=== PATIENT | male | born 1945 | race Caucasian/White ===

== ENCOUNTER 2017-03-02 22:45 | Observation (INO) | payer MEDICARE, OTHER ==
[~2017-03-02] VITALS: Ht 167.6 cm; Wt 75.1 kg
[~2017-03-02 22:45] MED LIST: ALBU8.5H2 INHALATION; ASPI-973 PO; BECL8.7A6 IH; BISO10TA PO; CHOL400T PO; DIGO125T73 PO; HYDR-4003 PO; INSLIS SUBQ; INSU100I13 SUBQ; LEVO750T39 PO; LIP40 PO; LISI-610 PO; NITR0.4T SL; POTA-62 PO; TIOT18CA3 IH; TORS20TA3 PO; WARF2TAB7 PO; WARF4TAB6 PO; ZLP5T PO
[2017-03-02 22:58] VITALS: PULSE 72; RESP 18; O2SAT 90
--- NOTE | 2017-03-02 23:05 | ED.REPORT ---
HPI-General Illness Date of Service Mar 02, 2017 ED Provider: Sae Gonzalez MD Patient is a 71 year old male with a history of congestive heart failure, COPD, coronary artery disease with prior SC, CABG 5x, aortic valve replacement, diabetes mellitus, hypertension, and atrial fibrillation on Warfarin who presents to the ED complaining of progressively worsening shortness of breath that began 1 week ago. Patient states that he had such difficulty breathing tonight that he just couldn't take it anymore. Patent reports associated cough and dyspnea on exertion. The patient reports intermittent sharp chest pain, which he states have been ongoing for some time. Patient admits to recently taking an additional Lasix but denies increased swelling in his legs. He denies a fever. The patient is currently in the process of moving and did not have access to his nebulizer. Nursing Notes Stated Complaint: CHF/SHORTNESS OF BREATH Chief Complaint: Respiratory Distress Nursing Notes Reviewed: Yes Allergies: Coded Allergies: morphine (Verified Adverse Reaction, Severe, Hallucinations, 03/03/17) Scheduled Aspirin (Aspirin) 81 Mg Tablet.dr 81 MG PO DAILY Atorvastatin (Lipitor) 40 Mg Tablet 40 MG PO HS Beclomethasone Dipropionate (Qvar) 8.7 Gm Aer.w.adap 2 PUFFS IH DAILY Bisoprolol Fumarate (Bisoprolol Fumarate) 10 Mg Tablet 10 MG PO BID Cholecalciferol (Vitamin D3) (Vitamin D3) 400 Unit Tablet 400 UNIT PO DAILY Digoxin (Digoxin) 125 Mcg Tablet 62.5 MCG PO DAILY Insulin Glargine (Lantus U100 Solostar Insulin Pen) 100 Unit/1 Ml Insuln.pen 16 UNIT SUBQ QAM Insulin Human Lispro (HumaLOG U100 Insulin Vial) 100 Unit/Ml Unit 0 SUBQ TID- INSULIN Check blood sugars before meals and at bedtime. Use correction factor only before meals. Blood Sugar Lispro Correction: <151, 0 units; 151-175, 1 unit; 176 -200, 2 units; 201-225, 3 units; 226-250, 4 units; 251-275, 5 units; 276-300, 6 units; 301-325, 7 units; 326-350, 8 units; 351-375, 9 units; 376-400, 10 units; >400, 12 units. Levofloxacin (Levofloxacin) 750 Mg Tablet 750 MG PO DAILY Lisinopril (Zestril) 10 Mg Tablet 10 MG PO BID Potassium Chloride ER (Potassium Chloride ER) 20 Meq Tablet.er 20 MEQ PO DAILY TAKE WITH FOOD Torsemide (Torsemide) 20 Mg Tablet 40 MG PO QAM Warfarin Sodium (Warfarin Sodium) 4 Mg Tablet 4 MG PO ,,, Warfarin Sodium (Warfarin Sodium) 2 Mg Tablet 2 MG PO ,,Sat Zolpidem (Ambien) 5 Mg Tab 5 MG PO HS Scheduled PRN Albuterol HFA (Proair HFA) 8.5 Gm Hfa.aer.ad 2 PUFFS INHALATION QID PRN PRN For Shortness of Breath Hydrocodone-Acetaminophen 5-325 mg (Hydrocodone-Acetaminophen 5-325 mg) 1 Each Tablet 1 EACH PO Q6 PRN PRN For Pain Nitroglycerin SL (Nitrostat) 0.4 Mg Tab.subl 0.4 MG SL Q5MIN PRN PRN For Chest Pain Tiotropium Thornton (Spiriva) 18 Mcg Cap.w.dev 18 MCG IH DAILY PRN PRN For Shortness of Breath General Time Seen by MD: 23:04 Chief Complaint Breathing problem Hx Obtained From: Patient Arrived By: Walk-in Sudden in Onset?: No Onset Occurred: 1 week ago Symptom Duration: Since onset Location: : Chest Quality: Painful, Sharp Severity: Current: No pain currently Severity: Maximum: Moderate Recent Healthcare: No recent doctor visit, No recent hospitalization Similar Sx Previous: Yes Past Medical History Past Medical History Notes: PCP: Dr. Jacques Health Insurance Sales Agent: Dr. Carvalho Past Medical History Coronary artery disease with multiple SC and 5-vessel bypass (2005) CHF, systolic atrial fibrillation on Warfarin Ischemic cardiomyopathy Lower intestine blood clot pneumonia right frontal meningioma Reports: COPD, Diabetes mellitus, Hyperlipidemia, Hypertension Past Surgical History Aortic valve replacement 5-vessel bypass Reports: Pacemaker insertion Family History Father age 50, SC Mother age 52, brain aneurysm Smoking History Former Smoker Social History Taking full care of traumatic brain injured son since age 18. Alcohol Use: "Social" Drug Use: Denies drug use Other Social History: Good social support, , Local resident Ambulatory Status Independent Review of Systems Full Review of Systems Constitutional: Denies: Fever Respiratory: Reports: Dyspnea on exertion, Non-productive cough, Shortness of breath Cardiovascular: Reports: Chest pain, Denies: Edema Musculoskeletal: Denies: Extremity swelling Physical Exam Vital Signs Vital Signs Date Time Temp Pulse Resp B/P Pulse Ox O2 Delivery O2 Flow Rate FiO2 03/03/17 00:15 73 20 111/64 92 Room Air 03/03/17 00:01 71 22 111/64 92 Room Air 03/02/17 23:35 72 24 136/67 92 Room Air 03/02/17 23:33 71 15 96 Room Air 03/02/17 22:58 36.9 72 18 90 Room Air Initial VS: Reviewed Skin: Warm, Dry, No cyanosis Neurologic: Alert, Oriented, Nonfocal Psychiatric: Mood/affect normal, Behavior normal, Normal thought content General/Constitutional: Awake, Alert, No acute distress Head / Eyes: Normocephalic, PERRL, EOMI ENT: Airway patent, Mucous membranes moist Neck: Supple, Full range of motion, No JVD Respiratory / Chest: Breath sounds = bilat, No rhonchi, No wheezing Rales / Rhonchi: Positive: Rales bilateral bases Cardiovascular: Heart rate NL, Regular rhythm, No gallop Heart Sounds / Murmur: Positive: Click present, Murmur present... (II/) Abdomen: Soft, Non-tender Upper Extremities Upper Extremity / MS: No swelling, No edema Lower Extremity / Pelvis / MS: No swelling, No edema Interpretation & Diagnostics Lab Results Interpretation Result Diagram: 03/03/17 0500 03/02/17 2330 Test 03/02/17 23:30 Prothrombin Time 31.7sec (8.1-12.5) Prothromb Time International Ratio 2.90ratio Sodium Level 138mEq/L (134-144) Potassium Level 4.0mEq/L (3.5-5.2) Chloride Level 102mEq/L (97-108) Carbon Dioxide Level 22mmol/L (18-29) Blood Urea Nitrogen 27mg/dL (8-27) Creatinine 1.13mg/dL (0.76-1.27) Estimat Glomerular Filtration Rate 68mL/min (>59) Glucose Level 171mg/dL (60-99) Lactic Acid Level 1.7mmol/L (0.4-2.0) Calcium Level 8.8mg/dL (8.5-10.1) Magnesium Level 2.0mg/dL (1.6-2.6) Total Bilirubin 1.0mg/dL (0.0-1.2) Aspartate Amino Transf (AST/SGOT) 23U/L (0-50) Alanine Aminotransferase (ALT/SGPT) 15U/L (0-44) Alkaline Phosphatase 75U/L (25-160) Pro-B-Type Natriuretic Peptide 3309pg/mL (0-376) Total Protein 6.9g/dL (6.4-8.4) Albumin 3.6g/dL (3.4-5.0) Procalcitonin 0.09ng/mL (0.00-0.08) Thyroid Stimulating Hormone (TSH) 0.843uIU/mL (0.450-4.500) Digoxin Level 0.4nG/mL (0.9-2.0) ECG Interpretation ECG Interpretation: Ventricular-paced rhythm, Rate 70 Time: 23:27 Interpreted by: ED physician Normal ECG Interpretation: No acute ischemic changes, No change from prior ECGs (06/01/2016) X-Ray Chest Interpretation Chest Xray Interpretation: Impression: Blunting of both costophrenic angles, old. Increased markings bilateral lower lobes, old, immproved compared to 06/01/2016. View: AP & lat Interpretation / Wet Read by: Wet read ED physician Re-Eval/Medical Decision Med Decision/Clinical Course 71-year-old man with multiple medical issues including COPD, CHF, COPD, aortic valve replacement, chronically on Coumadin with A. fib, diabetes, presents now with shortness of breath hypoxemia and cough. B natruretic peptide is 3300. X-ray does not appear to show any worsening CHF. Neither does it show any acute infiltrate. He is improved with the nebulizer here. Even after treatment, he desaturates with standing and pivoting for even a few seconds. He is admitted now for further evaluation and management was COPD and some underlying presumptive CHF. No infiltrates and no immediate indication for antibiotics. Source of Hx: Old records Time of Eval: 00:56 Re-Evaluation/Progress Note: Rechecked the patient. Discussed the results of his EKG, chest x-ray, and labs. He continues to be short of breath, but is improved. Patient will be admitted to the hospital for further care. He understands and agrees with this plan. All questions were addressed. Consultation : Referral / Consult Name: Anabela Parson DO Consulted With: Hospitalist Call Returned at: 00:58 Yardage Estimator: Will see patient, Agrees with eval, Agrees with plan, Accepts admit Note: Spoke with Dr. Parson, hospitalist, who agrees to accept admit. Counseled Regarding: Diagnosis, Lab results, Need for admission Discharge & Departure Primary Impression: COPD exacerbation Additional Impressions: CHF exacerbation Atrial fibrillation Atrial fibrillation type: chronic Qualified Code: I48.2 - Chronic atrial fibrillation Disposition: ADMITTED TO HOSPITAL Discharge Condition All VS Reviewed: Yes Condition: Stable Referrals: Britany Jacques MD (PCP) [facility] Attestation Portions of this note were transcribed by Tonya Price. Dr. Carlos Davis personally performed the history, physical exam and medical decision-making; I reviewed and confirmed the accuracy of the information in the transcribed note. Signed by: Elle Coffman, 03/03/2017 0100 copies to: Britany Jacques MD, Christopher W MD Mar 02, 2017 23:05 Tonya Price Mar 02, 2017 23:12 Yardage Estimator: Will see patient, Agrees with eval, Agrees with plan, Accepts admit Note: Spoke with Dr. Parson, hospitalist, who agrees to accept admit. Counseled Regarding: Diagnosis, Lab results, Need for admission Discharge & Departure Primary Impression: COPD exacerbation Additional Impression: CHF exacerbation Disposition: ADMITTED TO HOSPITAL Discharge Condition All VS Reviewed: Yes Condition: Stable Referrals: Britany Jacques MD (PCP) Scrib[facility] Attestation Portions of this note were transcribed by Tonya Price. Dr. Carlos Davis personally performed the history, physical exam and medical decision-making; I reviewed and confirmed the accuracy of the information in the transcribed note. Signed by: Elle Coffman, 03/03/2017 0100 copies to: Britany Jacques MD, Christopher W MD Mar 02, 2017 23:05 Tonya Price Mar 02, 2017 23:12
[2017-03-02] MEDS ORDERED: Albuterol-Ipratropium 3 mL Inhalation Solution ONE (23:28)
[2017-03-02] MEDS ORDERED: Albuterol-Ipratropium 3 mL Inhalation Solution NEB ONE (23:30)
[2017-03-02 23:33] VITALS: PULSE 71; RESP 15; O2SAT 96
[2017-03-02 23:35] VITALS: BP 136/67; PULSE 72; RESP 24; O2SAT 92
[2017-03-02 23:43] LABS: BASOPHILS % (AUTO) 0.5 % (0-3); EOSINOPHILS % (AUTO) 1.9 % (0-5); MONOCYTES % (AUTO) 10.9 % (4-12); Mean Corpuscular Hemoglobin 25.2 pg (27.0-35.0); NEUTROPHILS % (AUTO) 75.5 % (40-74); Platelet Count 213 bil/L (150-400)
[2017-03-03] VITALS (12 sets, daily range): BP systolic 111–136; BP diastolic 64–73; PULSE 58–83; RESP 18–22; O2SAT 92–96
[2017-03-03 00:01] LABS: INR 2.9 ratio
[2017-03-03] MEDS ORDERED: MethylprednisoLONE Sodium Succinate 62.5 mg/mL 2 mL Inj IVPUSH ONE (00:15)
[2017-03-03 00:31] LABS: TROPONIN T 0.01 ug/L (0.0-0.011)
[2017-03-03] MEDS ORDERED: Alum-Mag Hydrox-Simeth 30 mL Suspension PO PRN (01:40)
[2017-03-03] MEDS ORDERED: Polyethylene Glycol (PEG) 17 Gm Powder PO PRN (01:40)
[2017-03-03] MEDS ORDERED: Ondansetron 2 mg/mL 2 mL Inj IVPUSH PRN (01:40)
[2017-03-03] MEDS ORDERED: Albuterol 2.5 mg/3 mL Inhalation Solution NEB PRN (01:40)
--- NOTE | 2017-03-03 01:56 | PCM.HPMED ---
Subjective Date of Service Mar 03, 2017 Primary Provider: Admitting Physician: Anabela Parson DO Primary Care Physician: Britany Jacques MD Attending Physician: Anabela Parson DO Admit Status: From the Emergency Department Chief Complaint: SOB History of Present Illness: Pt is a 71yom with MHx significant for 66-moyj-abmi smoking, COPD, DMII, CAD status post CABG 5, aortic stenosis status post replacement, CHF, hypertension , A. fib on Coumadin with biventricular ICD presents with increasing shortness of breath. Per patient, SOB started 3wks ago. Worsen within the last 3-4 days. Particularly bad today, prompting ED visit. He needed constant rests when going grocery shopping, whereas, none a month before. He has a difficult time sleeping, fatigue in part, due to sob lying flat. He reports productive cough, though this has been ongoing. He has stop using inhalers [facility] 2[facility] ago stating its ineffectiveness on himself. Otherwise, he reports compliance with all of his other medications. He does not know what medication he takes however. Patient lives with and an adult mentally disable son while the process of moving to a new home. He denies any weight gain or loss, no fever, chills or night sweats, no visual changes, nosebleed, chest pain, abdominal pain, nausea, vomiting, diarrhea, constipation, melena, or dysuria. Review of Systems: Review of Systems: A comprehensive review of systems was conducted with the patient and found to be negative except as above in the History of Present Illness. Allergies Coded Allergies: morphine (Verified Adverse Reaction, Severe, Hallucinations, 03/03/17) Home Medications Medication list taken from [email or web address], will need to be reconciled with nurse Aspirin 81 mg daily Spiriva 18 mcg when necessary Abdomen D2 50,000 units weekly Potassium chloride ER 20 MB every daily Lisinopril 10 mg twice a day Torsemide 40 mg daily Albuterol HFA 90 MCG 2 puffs every 6 when necessary Insulin lispro 5-7 units with dinner Lantus 16 units every morning Albuterol ipratropium 0.5 mg-3mg nebulizer 6H when necessary Warfarin 4 mg Saturday, Saturday, / warfarin 2 mg Saturday atorvastatin in 40 mg daily Asmanex 220 MCG daily Hydrocortisone AP AP 5/325 mg every 6 hours as needed bisoprolol fumarate 5mg BID digoxin 62.5mg daily PMH Organic heart disease Rheumatic fever at age 7 Aortic stenosis status post aortic valve replacement with mechanical valves 2005 CAD, status post CABG 2005 CHF Severe ischemic cardiomyopathy status post AP node ablation and biventricular ICD Atrial fibrillation on chronic warfarin Diabetes type II on insulin COPD 76-ccko-puma smoking history Hypertension Hyperlipidemia Hx Ischemic bowel status post partial small bowel resection 11/2007 Right frontal lobe meningioma Peptic ulcer disease Hip fracture 20 years ago Surgical History Partial bowel resection November 2007 AV node ablation Biventricular ICD CABG x6 2005 Aortic valve replacement with mechanical valve 2005 Family History Father with diabetes Mother with stroke Sister with breast cancer Social History Occupation: [employer] Hx Alcohol Use: No Hx Substance Use: No Hx Tobacco Use: Yes Smoking Status: Former Smoker (40 pack year, quit 2006) Living Arrangement: with Family ( and mentally disable 47yo son) Exam Vital Signs Vital Sign - Last Date Time Temp Pulse Resp B/P Pulse Ox O2 Delivery O2 Flow Rate FiO2 03/03/17 01:31 71 21 111/64 93 Room Air 03/02/17 22:58 36.9 Exam Gen: sitting up, thin-shaped. speak in full sentence, however will desat into the high 80's. HEENT: PERRLA, Anicteric sclerae, moist conjunctivae, and no lid lag. Neck: supple, no JVD, noted enlarged thyroid. Cardio: Regular rate and rhythm, mechanical murmur Pulm: b/l air sound, no crackles or rhonchi, mild wheezes on the lower bases Abd: positive bowel tone. Soft, nontender, nondistended. Extremities: No clubbing, cyanosis, edema, or lymphadenopathy appreciated. Skin: Normal temperature, turgor, and texture; no rash, or subcutaneous nodules appreciated. mid-line scar from thorax to abdomen. several dry ulcer over right hand and forearm due to old dog bite Neuro: Cranial nerves grossly intact. moving equally on all four limbs. Psyc: Normal mood and affect. AoX3 Lab and Diagnostics Result Diagram: 03/02/17232903/02/172329 Assessment & Plan Patient is a 71-year-old gentleman with a MHx significant for hx heavy smoking, diabetes type II on insulin, COPD, CAD status post CABG 5, heart failure, and A. fib complaint of increasing shortness of breath, admitted for possible CHF/ COPD exacerbation. Shortness of Breath, present on admission, active - Possible COPD vs CHF exacerbation. He may have an underlining mixed systolic and diastolic heart failure. - O2 as needed with goals O2 sat 92-94% - ABG ordered CHF exacerbation, present on admission, active - Orthopneic, some signs of congestion on CRx, last echo (12/15/2015) EF 35-40% with restrictive filling patter of left ventricle and left ventricular hypertrophy. Troponin unremarkable, BNP 3301 on this admission. Possible medication non-compliance. - Cont lisinopril and torsemide, add one time lasix 40mg IV - Change home bisoprolol 10mg BID for metoprolol tartrate 25mg BID - Holding digoxin until digoxin level measured - Troponin trending, Digoxin level, TSH ordered - Echocardiogram ordered COPD exacerbation, present on admission, active - Medication non compliance. No signs or symptoms to suggest infection, procalcitonin 0.09. Crx not suggestive of pneumonia pattern - Prednisone 40mg daily for 5days - Albuterol/ipratropium Q4HWA and albuterol Q2H prn - Will need PFT after discharge outpatient A. fib, present on admission, chronic - Had AV ablation and biventricular ICD, ventricular paced rhythm on EKG - Cont with beta-prabhakar and warfarin CAD - Cont atorvastatin - Cont aspirin Diabetes type II insulin-dependent, present on admission, chronic - Home regiments Lantus 16u in the AM and Lispro 6-8u per meal, patient curiously not on metformin - Placed on Lantus 10u in the AM and medium sliding scale lispro - A1C pending Enlarged thyroid, present on admission, active - TSH ordered - Will need ultrasound outpatient to evaluate structure Chronic lower back pain, present on admission, stable -Hydrocodone-APAP 5/325mg Q6h prn DVT prophylaxis: warfarin Antipyretic: Acetaminophen PRN Antinausea: Ondansetron PRN Bowel regiment PRN Patient Status: Patient is admitted under inpatient status with expected length of stay GREATER than 2 midnights due to severity of presenting symptoms, risk of adverse event, and complexity of treatment plan. VTE Prophylaxis: SCDs Resuscitation Status: CPR: Attempt Resuscitation Attending Statement The patient was seen and examined together with house staff on 03/03/2017 and I agree with the history, exam and plan as outlined in the note above. Toney Coffey DO Mar 03, 2017 01:56 Anabela Parson DO Mar 03, 2017 06:32
--- NOTE | 2017-03-03 02:24 | ABG ---
DateTimeAnalyzed 02:19:00 -_ pH ____7.478 - 7.350 7.450 pCO2 ___34.4__ -mmHg 35.0 45.0 pO2 ___62.4__ -mmHg 70.0 100 HCO3- ___25.4__ -mmol/L 22.0 26.0 ABE ____1.8__ -mmol/L -2.0 2.0 tHb ___11.5__ -g/dL 12.0 18.0 O2Hb ___92.4__ -% 95.0 COHb ____2.2__ -% 1.5 MetHb ___-0.3__ -% 0.4 1.5 sO2 ___94.2__ -% 25.0 FIO2 ___21.0__ -% Drawn By MD - Date/Time Notified____ 02:23:00 -_ Oxygen Device 1 RA - Notified By MD - Notified Whom __DR ADELINA - B 763 -mmHg K+ ____3.7__ -mmol/L tO2 ___14.9__ -Vol% Alvaro test N/A -
[2017-03-03 02:28] LABS: APPEARANCE,URINE CLEAR (CLEAR,HAZY); COLOR,URINE STRAW (YELLOW); OCCULT BLOOD,URINE NEGATIVE (NEGATIVE); UROBILINOGEN,URINE NORMAL (NORMAL)
[2017-03-03] MEDS ORDERED: Glucose 40% Oral Gel 15 Gm Tube PO PRN (02:35)
[2017-03-03] MEDS ORDERED: HYDROcodone-APAP 5-325 mg Tablet PO PRN (03:15)
--- NOTE | 2017-03-03 05:17 | NUR ---
Admit Patient arrived to room at 0200 by wheelchair. Patient alert x 3, denied any pain. Patient up in the room independently. Patient continues to have SOB but is not in any distress. Patient remains on RA at 92%. Patient refusing most of physical assessment, does not want to change cloths. Patient stated taking all of his home medications but cannot find home nebulizer. Patient will not verify medications at this time and he wants to go home.
[2017-03-03 05:20] LABS: BASOPHILS % (AUTO) 0.1 % (0-3); EOSINOPHILS % (AUTO) 0.1 % (0-5); MONOCYTES % (AUTO) 1.1 % (4-12); Mean Corpuscular Hemoglobin 24.9 pg (27.0-35.0); Mean Corpuscular Volume 78.9 fL (81-100); NEUTROPHILS % (AUTO) 94.6 % (40-74); Platelet Count 204 bil/L (150-400)
[2017-03-03] MEDS ORDERED: Furosemide 10 mg/mL 4 mL Inj IVPUSH ONE (05:25)
[2017-03-03] MEDS: Albuterol-Ipratropium 3 mL Inhalation Solution NEB SCH ×2 (07:25→12:30)
--- NOTE | 2017-03-03 07:39 | DRSVH ---
PROCEDURE: X-RAY CHEST, TWO VIEWS ([id number]) INDICATIONS: sob TECHNIQUE: 2 views of the chest were acquired. COMPARISON: [facility], CR, XR CHEST 2VW, 06/03/2016, 10:23. [facility], CR, XR CHEST 1VW (PORTABLE), 06/01/2016, 5:51. FINDINGS: Surgical changes and devices: Left-sided pacer. Median sternotomy. Lungs and pleura: No pleural effusions or pneumothorax. Bilateral perihilar/peribronchial opacity. Mediastinum: Mediastinal contours are normal. Heart size is normal. Bones and chest wall: No suspicious bony abnormalities. Soft tissues appear unremarkable. IMPRESSION: Bilateral perihilar/peribronchial opacity, possibly indicating mild bronchopneumonia. Dictated by: Gloria Peres M.D. on 03/03/2017 at 7:35 Approved by: Gloria Peres M.D. on 03/03/2017 at 7:37
[2017-03-03] MEDS: Insulin LISPRO 300 Unit/3 mL Inj SUBQ SCH ×2 (07:43→11:15)
--- NOTE | 2017-03-03 07:48 | PCM.PHAPRO ---
Progress Warfarin Management by Pharmacy: -Indication: afib -Home Dose: warfarin 4mg SuTuTh, 2mg all other days per H & P -Inr on admit ~ midnight: 2.9 -Drug Interactions: none noted -H/H 11.3/35.8, Plt 204 -Inr Goal: 2-3 -Plan: will order warfarin 3mg this evening and follow. serial inr's have been ordered Bambi Bryant [facility] Mar 03, 2017 07:48
[2017-03-03] MEDS ORDERED: Insulin GLARgine 100 Unit/mL Syringe SUBQ SCH (08:30)
[2017-03-03] MEDS ORDERED: predniSONE 20 mg Tablet PO SCH (08:30)
[2017-03-03] MEDS ORDERED: ALBU90AE IH (09:59)
[2017-03-03] MEDS ORDERED: MOME0.24 IH (10:01)
[2017-03-03] MEDS ORDERED: BISO5TAB2 PO (10:02)
[2017-03-03] MEDS ORDERED: INSU200I SQ (10:07)
[2017-03-03] MEDS ORDERED: IPRA3AMP IH (10:08)
[2017-03-03] MEDS ORDERED: CHOL500050 PO (10:13)
--- NOTE | 2017-03-03 12:07 | NUR ---
Telemetry Per robotic technician at approx 1120 today pt started having trigeminal PVC's, the exact time the pt began getting his Echo. Pt reported feeling irritated with data entry technician & was having trouble breathing thru mask that tech had him wear. Post echo now approx 30 mins and per robotic technician pt still having trigeminal PVC's. notified. Cont to monitor.
--- NOTE | 2017-03-03 14:15 | NUR ---
Social Work: Initial Assessment Data & Assessment: See Initial Assessment. EMR reviewed. Patient is a 71 y/o male that admitted on 03/03/17 with COPD Exacerbation and CHF. SW met with patient to complete initial assessment, SW role explained and discharge planning discussed. Patient confirmed that his NOK is his , Clare Beaver [phone]. Patient does not have Advance Directive/DPOA and declined information. Patient confirmed that his PCP is Dr. Britany loya and insurance is [employer]. patient reported tat he lives at home with his and 47 y/o son with brain damage in a one story home. The patient's home has no steps and a wheel-chair ramp. The patient reports that he does drive. Patient has no DME. Patient has no HH or SNF history. Patient has no LTC benefits, but is a 100% service connected . Patient does not have any identified discharge needs at this time. SW will continue to follow and assist incase a need arise. Plan: Anticipated discharge home via POV when medically ready. No discharge needs identified at this time. SW to continue to follow if any needs arise. Violet Davis LMSW, MY Addendum: 03/03/17 at 1427 by VIOLET DAVIS Amended: Links added.
--- NOTE | 2017-03-03 14:27 | DRSVH ---
[facility] [address] [facility] [place] [address] Echocardiogram Report Name: BENITO PADILLA NStudy Date: Height: 66 in Hospital Exam Location: [facility] Weight: 166 lb Gender: Male BSA: 1.8 m2 : 1945 Age: 71 yrs BP: 136/65 mmHg Reason For Study: SHORTNESS OF BREATH Ordering Physician: HOSPITALIST [facility] Performed By: Gibson Mazariegos Referring Physician: Dr Britany Jacques Interpretation Summary 1. Moderately dilated left ventricle with mild asymmetric hypertrophy and an estimated EF of 30-35% 2. Normal right ventricular size with mildly reduced systolic function. The estimated right atrial pressure is low normal 3. The prosthetic aortic valve appears well seated and appears to be functioning well (velocity gradient is within normal limits). Compared to the previous study, the left ventricle appears somewhat more dilated but the function is not significantly changed. Other findings appear relatively stable Procedure: A two-dimensional transthoracic echocardiogram with color flow and Doppler was performed. The study quality was technically adequate. Comparison is made with the echocardiogram of 12/15/15. The patient was in normal sinus rhythm during the exam. The patient had frequent PVCs during the exam. Left Ventricle: The left ventricle is moderately dilated. There is mild asymmetric left ventricular hypertrophy. The ejection fraction is estimated to be 30-35%. Hypokinesis of the basal inferior/inferolateral wall. Right Ventricle: There is a pacemaker lead in the right ventricle. The right ventricle is normal size. Right ventricular systolic function is mildly reduced. Atria: The left atrium is severely dilated. Right atrial size is normal. No color doppler evidence for an ASD. Mitral Valve: There is mild mitral annular calcification. The mitral valve leaflets appear to open well. There is mild mitral regurgitation. Aortic Valve: There is a mechanical aortic valve. The prosthetic aortic valve is well-seated. Velocity ratio is 0.4. Mean gradient 16.3. There is trace aortic regurgitation. Tricuspid Valve: The tricuspid valve is normal in structure and function. There is trace tricuspid regurgitation. Pulmonary artery pressures cannot be estimated because of the lack of a measurable TR jet velocity. Pulmonic Valve: The pulmonic valve is normal in structure and function. There is trace pulmonic regurgitation. Great Vessels: The aortic root is normal size. The ascending aorta is mildly enlarged. The ascending aorta measures 3.6 cm. The IVC is of normal diameter and collapses greater than 50% with a sniff. This suggests a low right atrial pressure of 3 mm Hg. Pericardium/ Pleura There is no pericardial effusion. There is no pleural effusion. MMode/2D Measurements & Calculations LVIDd LA dimension RA long axis: 5.2 cm LVOT diam: 2.0 cm : 6.7 cm Ao root diam: 3.2 cm LVIDs LA A2 area RA area: 17.2 cm Aortic Jxn: 2.8 cm : 5.0 cm RA vol: 47.7 ml asc Aorta Diam: 3.6 cm FS: 25.5 % RA : 25.8 ml/m2 EPSS: 1.6 cm LA A4 area IVSd: 1.4 cm LVPWd LA length (vol) : 1.0 cm LA vol: 206.0 ml LA vol index : 111.5 ml/m2 IVC diam: 2.1 cm LVAd ap4 LVAd ap2 LV nails. diameter/BSA LV sys. diameter/BSA : 27.7 2m : 32.4 cm (cm/m^2): 3.6 (cm/m^2): 2.7 LVLd ap2: 7.7 cm EDV(MOD-sp2) EDV(sp2-el) : 117.3 ml Doppler Measurements & Calculations Ao V2 max: 262.7 cm/sec MV E max fidencio MV E/A: 261.2 PA V2 max Ao max P.6 mmHg : 109.2 cm/sec : 66.3 cm/sec Ao mean P.3 mmHg MV A max fidencio PA mean PG LVOT Max Fidencio : 0.42 cm/sec : 0.90 mmHg : 105.2 cm/sec PA Accel Time JUAN(I,D): 1.3 cm : 0.07 sec sev ratio: 0.42 MV dec time: 0.13 sec Ao V2 mean LV V1 max PG PA V2 mean : 192.9 cm/sec : 44.7 cm/sec Ao V2 VTI: 51.3 cm LV V1 VTI PA pr(Accel) JUAN(V,D): 1.2 cm2 : 21.4 cm : 52.4 mmHg JUAN indexed to BSA (cm^2/m^2): 0.70 Reading Physician:02:26 PM
--- NOTE | 2017-03-03 14:36 | PCM.DICHF ---
Marita Craig 03/03/17 1436: CHF Discharge Instructions Date of Service: Mar 03, 2017 Dates of Hospitalization Date of Hospital Admission Mar 03, 2017 at 01:11 Date of Discharge: Mar 03, 2017 Providers Admitting Physician: Anabela Parson DO Primary Care Physician: Britany Jacques MD Attending Physician: Anabela Parson DO Diagnosis at Time of Discharge Diagnosis at time of discharge CHF exacerbation, systolic, present on admission, active COPD, present on admission, active A. fib, present on admission, chronic CAD Diabetes type II insulin-dependent, present on admission, chronic Enlarged thyroid, present on admission, active Chronic lower back pain, present on admission, stable Problems: Labs Ejection Fraction 30-35% Laboratory Tests Test Range/Units 03/02/17 23:30 03/03/17 05:00 Sodium Level 134-144 mEq/L 138 Potassium Level 3.5-5.2 mEq/L 4.0 Chloride Level 97-108 mEq/L 102 Carbon Dioxide Level 18-29 mmol/L 22 Blood Urea Nitrogen 8-27 mg/dL 27 Creatinine 0.76-1.27 mg/dL 1.13 Estimat Glomerular Filtration Rate >59 mL/min 68 Glucose Level 60-99 mg/dL 171 Lactic Acid Level 0.4-2.0 mmol/L 1.7 Calcium Level 8.5-10.1 mg/dL 8.8 Magnesium Level 1.6-2.6 mg/dL 2.0 Total Bilirubin 0.0-1.2 mg/dL 1.0 Aspartate Amino Transf (AST/SGOT) 0-50 U/L 23 Alanine Aminotransferase (ALT/SGPT) 0-44 U/L 15 Alkaline Phosphatase 25-160 U/L 75 Pro-B-Type Natriuretic Peptide 0-376 pg/mL 3309 Total Protein 6.4-8.4 g/dL 6.9 Albumin 3.4-5.0 g/dL 3.6 Procalcitonin 0.00-0.08 ng/mL 0.09 Thyroid Stimulating Hormone (TSH) 0.450-4.500 uIU/mL 0.843 Troponin T 0.0-0.011 ug/L 0.010 Discharge Medications Other Medication Instructions You have received instructions on the medications your physician has prescribed at discharge. A list of these medications has been provided to you. Keep this and a list of all current medications with you. Keep the dates when you received the Flu and Pneumococcal (Pneumonia) Vaccines. 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 Remove salt shaker from the table. Read Nutritional Facts labels. Activity CHF Discharge Activity: Balance rest and activity, Stop when short breath/pain/ dizzy Weight Monitoring 1. Weigh yourself every day at the same time and write it down. 2. Take your weight log to your doctor visits. 3. Call your doctor if you gain 3-5 pounds over 2-3 days. 4. Your weight today is 165.57 lbs. Additional Instructions Smoking--Tobacco Use If you smoke, you are strongly encouraged to stop. If you have recently quit smoking, CONGRATULATIONS. For further information to stop smoking or to remain smoke-free, Follow Up Plan Follow Up Plan Follow up with your PCP in about 1-2 weeks. Please be sure to lower your salt intake as this likely lead to your CHF exacerbation. If you feel short of breath again like you did before you admission you can try to take an extra dose of your torsemide and see if this improves your breathing. Only do this once, if this does not help then seek medical attention. Please follow with Dr. Carvalho at your upcoming appointment this coming week. Cardiology Follow-up Provider: 2 weeks Report or call your Doctor REPORT TO YOUR DOCTOR OR SEEK MEDICAL ATTENTION: *Shortness of breath or have more difficulty breathing. *Swelling of your feet, ankles, hands or abdomen. *Feeling tired with normal activity or experiencing dizziness or fainting. *Trouble sleeping or waking up feeling short of breath or coughing. *Chest pain or pressure. *Weight gain of 3-5 pounds over 2-3 days. *Inability to take medications or follow treatment plan Heart Attach warning signs HEART ATTACK WARNING SIGNS * Chest discomfort. *Discomfort or pain in one or both arms, back, neck, jaw or stomach. *Shortness of breath. *Breaking out in a cold sweat, nausea, or lightheadedness. If you're having heart attack warning signs: CALL . DON'T WAIT MORE THAN A FEW MINUTES - 5 MINUTES AT MOST - TO CALL 9 - 1 - 1. Dwight Kinsey MD 03/03/17 1528: CHF Discharge Instructions Attending Statement The patient was seen and examined independently on 03/03/2017 and case discussed with Dr. Craig, I agree with the discharge instructions as outlined in the note above. Marita Craig DO Mar 03, 2017 14:36 Dwight Kinsey MD Mar 03, 2017 15:28
--- NOTE | 2017-03-03 15:16 | NUR ---
Discharge Reviewed d/c instructions with pt including care notes and new prescriptions, pt signed and given originals, copies to chart. IV d/c intact, tele removed. Pt VS stable/normal at d/c. All belongings packed by pt and taken with him. Pt walked off unit on foot carrying belongings, picking him up downstairs. Addendum: 03/03/17 at 1520 by MARIO ALBERTO ARIAS RN CHF booklet given to pt at d/c.
--- NOTE | 2017-03-08 13:40 | PCM.DC.MED ---
Discharge Summary Date of Service Mar 08, 2017 Dates of Hospitalization Date of Hospital Admission Mar 03, 2017 at 01:11 Date of Discharge: Mar 03, 2017 Providers: Admitting Physician: Anabela Parson DO Primary Care Physician: Britany Jacques MD Attending Physician: Anabela Parson DO Diagnosis at Time of Discharge Diagnosis at Time of Discharge CHF exacerbation, systolic, present on admission, active COPD, present on admission, active A. fib, present on admission, chronic CAD Diabetes type II insulin-dependent, present on admission, chronic Enlarged thyroid, present on admission, active Chronic lower back pain, present on admission, stable Procedures Cardiac Echo Impression Interpretation Summary 1. Moderately dilated left ventricle with mild asymmetric hypertrophy and an estimated EF of 30-35% 2. Normal right ventricular size with mildly reduced systolic function. The estimated right atrial pressure is low normal 3. The prosthetic aortic valve appears well seated and appears to be functioning well (velocity gradient is within normal limits). Compared to the previous study, the left ventricle appears somewhat more dilated but the function is not significantly changed. Other findings appear relatively stable Brief History From Dr. Byers's H and P: "Pt is a 71yom with MHx significant for 85-edim-geol smoking, COPD, DMII, CAD status post CABG 5, aortic stenosis status post replacement, CHF, hypertension, A. fib on Coumadin with biventricular ICD presents with increasing shortness of breath. Per patient, SOB started 3wks ago. Worsen within the last 3-4 days. Particularly bad today, prompting ED visit. He needed constant rests when going grocery shopping, whereas, none a month before. He has a difficult time sleeping, fatigue in part, due to sob lying flat. He reports productive cough, though this has been ongoing. He has stop using inhalers [facility] stating its ineffectiveness on himself. Otherwise, he reports compliance with all of his other medications. He does not know what medication he takes however. Patient lives with and an adult mentally disable son while the process of moving to a new home. He denies any weight gain or loss, no fever, chills or night sweats, no visual changes, nosebleed, chest pain, abdominal pain, nausea, vomiting, diarrhea, constipation, melena, or dysuria." Hospital Course Patient is a 71-year-old gentleman with a MHx significant for hx heavy smoking, diabetes type II on insulin, COPD, CAD status post CABG 5, heart failure, and A. fib complaint of increasing shortness of breath, admitted for possible CHF/ COPD exacerbation. Shortness of Breath, present on admission, active - Likely due to CHF exacerbation. CHF exacerbation, present on admission, active - Orthopneic, some signs of congestion on CRx, last echo (12/15/2015) EF 35-40% with restrictive filling patter of left ventricle and left ventricular hypertrophy. Troponin unremarkable, BNP 3301 on this admission. Possible medication non-compliance. - Cont lisinopril and torsemide, add one time lasix 40mg IV with significant improvement - Troponin trending, Digoxin level, TSH ordered - Echocardiogram as above COPD exacerbation not in exacerbation, present on admission, active - Medication non compliance. No signs or symptoms to suggest infection, procalcitonin 0.09. Crx not suggestive of pneumonia pattern - Albuterol/ipratropium Q4HWA and albuterol Q2H prn - Will need PFT after discharge outpatient A. fib, present on admission, chronic - Had AV ablation and biventricular ICD, ventricular paced rhythm on EKG - Cont with beta-prabhakar and warfarin CAD - Cont atorvastatin - Cont aspirin Diabetes type II insulin-dependent, present on admission, chronic - Home regiments Lantus 16u in the AM and Lispro 6-8u per meal, patient curiously not on metformin - Placed on Lantus 10u in the AM and medium sliding scale lispro - A1C pending Enlarged thyroid, present on admission, active - TSH ordered - Will need ultrasound outpatient to evaluate structure Chronic lower back pain, present on admission, stable -Hydrocodone-APAP 5/325mg Q6h prn Exam Vital Signs (Last) Date Time Temp Pulse Resp B/P Pulse Ox O2 Delivery O2 Flow Rate FiO2 03/03/17 13:25 36.7 68 20 115/73 92 Room Air Exam Gen: sitting up, thin-shaped. speak in full sentence, however will desat into the high 80's. HEENT: PERRLA, Anicteric sclerae, moist conjunctivae, and no lid lag. Neck: supple, no JVD, noted enlarged thyroid. Cardio: Regular rate and rhythm, mechanical murmur Pulm: b/l air sound, no crackles or rhonchi, mild wheezes on the lower bases Abd: positive bowel tone. Soft, nontender, nondistended. Extremities: No clubbing, cyanosis, edema, or lymphadenopathy appreciated. Skin: Normal temperature, turgor, and texture; no rash, or subcutaneous nodules appreciated. mid-line scar from thorax to abdomen. several dry ulcer over right hand and forearm due to old dog bite Neuro: Cranial nerves grossly intact. moving equally on all four limbs. Psyc: Normal mood and affect. AoX3 Test 03/02/17 23:30 03/03/17 02:16 03/03/17 05:00 Prothrombin Time 31.7sec (8.1-12.5) Prothromb Time International Ratio 2.90ratio Sodium Level 138mEq/L (134-144) Potassium Level 4.0mEq/L (3.5-5.2) Chloride Level 102mEq/L (97-108) Carbon Dioxide Level 22mmol/L (18-29) Blood Urea Nitrogen 27mg/dL (8-27) Creatinine 1.13mg/dL (0.76-1.27) Estimat Glomerular Filtration Rate 68mL/min (>59) Glucose Level 171mg/dL (60-99) Lactic Acid Level 1.7mmol/L (0.4-2.0) Calcium Level 8.8mg/dL (8.5-10.1) Magnesium Level 2.0mg/dL (1.6-2.6) Total Bilirubin 1.0mg/dL (0.0-1.2) Aspartate Amino Transf (AST/SGOT) 23U/L (0-50) Alanine Aminotransferase (ALT/SGPT) 15U/L (0-44) Alkaline Phosphatase 75U/L (25-160) Pro-B-Type Natriuretic Peptide 3309pg/mL (0-376) Total Protein 6.9g/dL (6.4-8.4) Albumin 3.6g/dL (3.4-5.0) Procalcitonin 0.09ng/mL (0.00-0.08) Thyroid Stimulating Hormone (TSH) 0.843uIU/mL (0.450-4.500) Digoxin Level 0.4nG/mL (0.9-2.0) Urine Color Straw (YELLOW) Urine Appearance Clear (CLEAR,HAZY) Urine pH 6.0 (5.0-8.0) Urine Specific [place] 1.010 (1.003-1.035) Urine Protein Negativemg/dL (NEG,TRACE) Urine Glucose (UA) Negativemg/dL (NEGATIVE) Urine Ketones Negativemg/dL (NEGATIVE) Urine Occult Blood Negative (NEGATIVE) Urine Nitrite Negative (NEGATIVE) Urine Bilirubin Negative (NEGATIVE) Urine Urobilinogen Normalmg/dL (NORMAL) Urine Leukocyte Esterase Negative (NEGATIVE) Urine RBC 0-2/hpf (0-2) Urine WBC 0-5/hpf (0-5) Urine Epithelial Cells Occasional/hpf (NONE-MOD) Urine Crystals None seen (NONE SEEN) Urine Bacteria None/hpf (NONE-FEW) Urine Hyaline Casts None/lpf (NONE) Urine Granular Casts None seen (NONE SEEN) Urine Waxy Casts None seen (NONE SEEN) Urine Red Blood Cell Casts None seen (NONE SEEN) Urine White Blood Cell Casts None seen (NONE SEEN) Urine Mucus None seen (None Seen) Urine Trichomonas None seen (NONE SEEN) Urine Yeast None (NONE SEEN) Urinalysis Comment None Urine Culture Reflexed Not indicated White Blood Count 8.6th/mm3 (3.8-10.1) Red Blood Count 4.54mil/mm3 (4.40-5.80) Hemoglobin 11.3g/dL (13.8-17.2) Hematocrit 35.8% (41.0-50.0) Mean Corpuscular Volume 78.9fL (81-100) Mean Corpuscular Hemoglobin 24.9pg (27.0-35.0) Mean Corpuscular Hemoglobin Concent 31.6% (32.0-37.0) Red Cell Distribution Width 15.3% (12.3-15.4) Platelet Count 204bil/L (150-400) Neutrophils (%) (Auto) 94.6% (40-74) Lymphocytes (%) (Auto) 4.0% (14-46) Monocytes (%) (Auto) 1.1% (4-12) Eosinophils (%) (Auto) 0.1% (0-5) Basophils (%) (Auto) 0.1% (0-3) Troponin T 0.010ug/L (0.0-0.011) Discharge Medications Discharge Medications Aspirin (Aspirin) 81 Mg Tablet.dr 81 MG PO DAILY Prescribed by: INDIO SCOTT MD Atorvastatin (Lipitor) 40 Mg Tablet 40 MG PO HS Prescribed by: ADAN RIZVI DO Bisoprolol Fumarate (Bisoprolol Fumarate) 5 Mg Tablet 5 MG PO BID (Reported) Cholecalciferol (Vitamin D3) (Vitamin D3) 50,000 Unit Capsule 50,000 UNIT PO WEEKLY (Reported) Digoxin (Digoxin) 125 Mcg Tablet 62.5 MCG PO DAILY (Reported) Insulin Glargine (Lantus U100 Solostar Insulin Pen) 100 Unit/1 Ml Insuln.pen 16 UNIT SUBQ QAM (Reported) Insulin Lispro (Humalog Kwikpen) 200 Unit/Ml (3 Ml) Insuln.pen 5-7 UNIT SQ DAILYWD (Reported) Lisinopril (Zestril) 10 Mg Tablet 10 MG PO BID Prescribed by: ADAN RIZVI DO Mometasone Furoate (Asmanex) 220 Mcg Aer.pow.ba 220 MCG IH HS (Reported) Potassium Chloride ER (Potassium Chloride ER) 20 Meq Tablet.er 20 MEQ PO DAILY ( Reported) TAKE WITH FOOD Torsemide (Torsemide) 20 Mg Tablet 40 MG PO QAM (Reported) Warfarin Sodium (Warfarin Sodium) 4 Mg Tablet 4 MG PO ,,, (Reported) Warfarin Sodium (Warfarin Sodium) 2 Mg Tablet 2 MG PO ,,Sat (Reported) Zolpidem (Ambien) 5 Mg Tab 5 MG PO HS (Reported) As needed Albuterol Sulfate (Proair Respiclick) 90 Mcg Aer.pow.ba 90 MCG IH TID PRN PRN For Wheezing (Reported) Hydrocodone-Acetaminophen 5-325 mg (Hydrocodone-Acetaminophen 5-325 mg) 1 Each Tablet 1 EACH PO Q6 PRN PRN For Pain (Reported) Ipratropium/Albuterol Sulfate (Iprat-Albut 0.5-3(2.5) mg/3 mL Inhalant Soln) 3 Ml Ampul.neb 3 ML IH Q6 PRN PRN For Wheezing (Reported) Nitroglycerin SL (Nitrostat) 0.4 Mg Tab.subl 0.4 MG SL Q5MIN PRN PRN For Chest Pain (Reported) Tiotropium [place] (Spiriva) 18 Mcg Cap.w.dev 18 MCG IH DAILY PRN PRN For Shortness of Breath (Reported) Followup Plan Follow-up plan Follow up with your PCP in about 1-2 weeks. Please be sure to lower your salt intake as this likely lead to your CHF exacerbation. If you feel short of breath again like you did before you admission you can try to take an extra dose of your torsemide and see if this improves your breathing. Only do this once, if this does not help then seek medical attention. Please follow with Dr. Carvalho at your upcoming appointment this coming week. Attending Statement The patient was seen and examined independently on 03/03/2017 and case discussed with Dr. Craig, I agree with the discharge instructions as outlined in the note above. Marita Craig DO Mar 08, 2017 13:40 Dwight Kinsey MD Mar 10, 2017 20:35
== END 2017-03-03 15:16 | disposition home or self-care (01) ==
LOC: SED 22:45 → OBSVTOIN 03-03 01:11 → INTOOBSV 03-03 01:11 → MPC 03-03 01:11
PROVIDERS: ADMIT Internal Medicine; ATTEND Internal Medicine
DX: J44.1 Chronic obstructive pulmonary disease with (acute) exacerbation (principal); I50.20 Unspecified systolic (congestive) heart failure; I48.2 Chronic atrial fibrillation; I25.10 Atherosclerotic heart disease of native coronary artery without angina pectoris; E11.9 Type 2 diabetes mellitus without complications; E04.9 Nontoxic goiter, unspecified; M54.5 Low back pain; I10 Essential (primary) hypertension; I25.5 Ischemic cardiomyopathy; E78.5 Hyperlipidemia, unspecified; I35.0 Nonrheumatic aortic (valve) stenosis; Z95.2 Presence of prosthetic heart valve; Z86.73 Personal history of transient ischemic attack (TIA), and cerebral infarction without residual deficits; Z95.1 Presence of aortocoronary bypass graft; Z79.01 Long term (current) use of anticoagulants; Z79.82 Long term (current) use of aspirin; Z79.84 Long term (current) use of oral hypoglycemic drugs; Z88.8 Allergy status to other drugs, medicaments and biological substances; Z86.718 Personal history of other venous thrombosis and embolism; Z87.891 Personal history of nicotine dependence; Z95.0 Presence of cardiac pacemaker
CPT/HCPCS: 36415; 36620; 71020; 80053; 80162; 81000; 82375; 82803; 83605; 83735; 83880; 84145; 84443; 84484; 85025; 85610; 93005; 94640; 94664; 96374; 96375; 99285; C8929; G0378; J1815; J1940; J2930; J7613; J7620